=== PATIENT | male | born 1960 | race Caucasian/White ===

== ENCOUNTER 2022-01-06 19:41 | Emergency (ER) | payer SELFPAY ==
--- NOTE | ~2022-01-06 | XR_ITS ---
EXAMINATION: XR foot RT min 3V DATE: 01/06/2022 20:37 INDICATION: Right foot pain TECHNIQUE: Dorsoplantar, lateral, and 2 oblique views of the right foot were obtained. COMPARISON: None. FINDINGS: Bone alignment is normal. There is no fracture. There is mild osteoarthritis of the midfoot . Mild osteoarthritis is also noted at the first metatarsophalangeal joint and in multiple interphala ngeal joints. A plantar calcaneal enthesophyte is noted. The soft tissues are unremarkable. IMPRESSION: 1. No acute osseous abnormality. Reviewed, dictated and finalized at location F.
--- NOTE | ~2022-01-06 | XR_ITS ---
EXAMINATION: XR knee RT min 4V DATE: 01/06/2022 20:38 INDICATION: Right knee pain TECHNIQUE: Four views of the right knee were obtained. COMPARISON: None. FINDINGS: Alignment is normal. No fracture or osteochondral lesion. There is mild tricompartmental os teoarthritis characterized by tiny marginal osteophytes. No joint effusion/synovitis. Soft tissues a re unremarkable. IMPRESSION: 1. No acute osseous abnormality. Reviewed, dictated and finalized at location F.
--- NOTE | ~2022-01-06 | CT_ITS ---
EXAMINATION: CT cervical spine wo con DATE: 01/06/2022 20:26 INDICATION: Neck pain after fall TECHNIQUE: Computed tomography (CT) of the cervical spine was performed without intravenous contrast. The dose-length product (DLP) was 535.88 mGy-cm. Automated exposure control and iterative reconstruc tion technique were employed. COMPARISON: None FINDINGS: There is no fracture, dislocation, or subluxation. The vertebral body heights and alignment are normal. There is moderate loss of intervertebral disc space height at C5-6, C6-7, and C7-T1. Mil d loss of vertebral disc space height is present throughout the remainder of the cervical spine. Ther e is severe facet osteoarthritis of the upper cervical spine. There is moderate multilevel uncoverteb ral joint osteoarthritis. The odontoid is intact. IMPRESSION: 1. Moderate cervical spondylosis without acute findings. Reviewed, dictated and finalized at location F.
[2022-01-06 19:58] VITALS: BP 123/80; PULSE 56; RESP 16; TEMP 36.6; O2SAT 95
--- NOTE | 2022-01-06 20:49 | ED.FALL ---
HPI - Fall General Chief Complaint: Fall Stated Complaint: foot injury Time Seen by Provider: 01/06/22 20:08 Source: patient Mode of arrival: wheelchair Limitations: physical limitation (is deaf) History of Present Illness HPI Narrative: 61-year-old brought by family with complaints of fall. Patient states that he became dizzy after drinking and took trazodone and fell on the right side complains of neck pain right shoulder pain and right knee and the foot pain. He denies loss of consciousness. MD complaint: fall Onset (ago): hour(s) (2) Fall from: standing Fall witnessed: yes, by family Place fall occurred: home Loss of consciousness: none Prolonged down time: no Symptoms prior to fall: none Context: alcohol use and other Location of injury: neck and other Location of injury - extremities: Right: knee and foot Severity: moderate Quality: dull Associated symptoms (after fall): denies Related Data Allergies Allergy/AdvReac Type Severity Reaction Status Date / Time Tetanus Vaccines and Toxoid Allergy Severe Anaphylactic Verified 02/02/10 15:48 Shock Horse Serum Proteins Allergy Severe Anaphylactic Uncoded 02/02/10 15:48 Shock Review of Systems Review of Systems: All systems reviewed & are unremarkable except as noted in HPI and below Constitutional: Constitutional: Reports no additional constitutional complaints Eyes: Eyes: Reports no additional eye complaints ENT: Reports system reviewed and no additional complaints, except as documented Cardiovascular: Cardiovascular: Reports no additional cardiovascular complaints Respiratory: Respiratory: Reports no additional respiratory complaints Gastrointestinal: Gastrointestinal: Reports no additional gastrointestinal complaints Musculoskeletal: Musculoskeletal: Reports as per HPI Neurologic: Reports system reviewed and no additional complaints, except as documented Exam Narrative: GENERAL: Well-appearing, well-nourished, and in no acute distress. HEAD: Normocephalic, atraumatic. EYES: PERRLA and EOMI. NECK: Supple. mild tenderness CHEST: Clear to auscultation. No respiratory distress. HEART: Regular rate and rhythm. No murmur heard. Normal peripheral pulses. EXTREMITIES: Normal range of motion. No edema. Right knee no evidence of dislocation or bruising noted right foot no deformity SKIN: Warm, dry, no rash. NEURO: No focal deficits. Alert and oriented x3. PSYCH: Normal mood and affect. Course Vital Signs Vital signs: Vital Signs Temperature 36.6 C 01/06/22 19:58 Pulse Rate 56 L 01/06/22 19:58 Respiratory Rate 16 01/06/22 19:58 Blood Pressure 123/80 01/06/22 19:58 Pulse Oximetry 95 01/06/22 19:58 Temperature 36.6 C 01/06/22 19:58 Pulse Rate 56 L 01/06/22 19:58 Respiratory Rate 16 01/06/22 19:58 Blood Pressure 123/80 01/06/22 19:58 Pulse Oximetry 95 01/06/22 19:58 MDM - Fall Differential Diagnosis Differential diagnosis: Likely other (Cervical fracture, knee fracture, dislocation, foot fracture) Imaging Data Radiologist's impression: ITS Impressions Cervical Spine CT 01/06/22 20:32 IMPRESSION: 1. Moderate cervical spondylosis without acute findings. Foot X-Ray 01/06/22 20:38 IMPRESSION: 1. No acute osseous abnormality. Knee X-Ray 01/06/22 20:41 IMPRESSION: 1. No acute osseous abnormality. Discharge Plan Discharge Clinical Impression: Contusion of knee, right Qualifiers: Encounter type: initial encounter Qualified Code(s): S80.01XA - Contusion of right knee, initial encounter Contusion of foot, right Qualifiers: Encounter type: initial encounter Qualified Code(s): S90.31XA - Contusion of right foot, initial encounter Cervical strain Qualifiers: Encounter type: initial encounter Qualified Code(s): S16.1XXA - Strain of muscle, fascia and tendon at neck level, initial encounter Patient Disposition: Home, Self-Care Condition: Stable Instructions: Contu
== END 2022-01-06 21:20 | disposition home or self-care (01) ==
PROVIDERS: Emergency Provider Family Medicine
DX: S80.01XA Contusion of right knee, initial encounter (principal); S90.31XA Contusion of right foot, initial encounter; S16.1XXA Strain of muscle, fascia and tendon at neck level, initial encounter; W19.XXXA Unspecified fall, initial encounter
CPT/HCPCS: 72125; 73564; 73630; 99284